=== PATIENT | female | born 1950 | race Caucasian/White ===

== ENCOUNTER 2023-10-17 06:15 | Day surgery (SDC) | payer MEDICARE, SELFPAY ==
[2023-10-12 09:58] VITALS: BMI 30.3
--- NOTE | 2023-10-13 14:17 | HO.ANESPROP2 ---
HPI - Anesthesia Eval Consult details Narrative: 73yo F for Right Cataract Extraction IOL Insertion No previous cataract PMFSH Past Medical History Medical History Loculated pleural effusion Lung nodule Osteopenia Urticaria TIA (transient ischemic attack) Emphysema of lung Cancer of left lung Hx of varicose veins History of adenocarcinoma of lung Obese GERD (gastroesophageal reflux disease) Thyroid disease COPD (chronic obstructive pulmonary disease) HLD (hyperlipidemia) HTN (hypertension) Surgical History Surgical History Hx of dilation and curettage Hx of colonoscopy Hx of tonsillectomy History of lung surgery Social History Social History Patient Tobacco Use Status: Former Tobacco user Use of substances other than those prescribed or required for medical reasons: No Are you DNR?: No Advance Directives: No Advance Directives Information Provided: No Advance Directives on File: No Patient : No : No Meds Allergies Allergy/AdvReac Type Severity Reaction Status Date / Time morphine Allergy Hallucinati Verified 10/17/23 06:56 ons Home Medications ?Medication ?Instructions ?Recorded ?Confirmed ?Last Taken ?Type albuterol sulfate 90 mcg/actuation 2 puff inhalation Q4-6H 10/12/23 10/12/23 10/17/23 History aerosol inhaler aspirin 81 mg tablet,delayed 81 mg PO DAILY 10/12/23 10/12/23 Unknown History release cholecalciferol (vitamin D3) 50 50 mcg PO DAILY 10/12/23 10/12/23 Unknown History mcg (2,000 unit) capsule (Vitamin D3) cimetidine 200 mg tablet 200 mg PO BID 10/12/23 10/12/23 Unknown History coenzyme Q10 300 mg capsule (Co 300 mg PO DAILY 10/12/23 10/12/23 Unknown History Q-10) fluticasone furoate 200 1 ea inhalation DAILY 10/12/23 10/12/23 Unknown History mcg-vilanterol 25 mcg/dose inhalation powder (Breo Ellipta) hydrochlorothiazide 12.5 mg capsule 12.5 mg PO DAILY 10/12/23 10/12/23 Unknown History levothyroxine 75 mcg tablet 75 mcg PO DAILY 10/12/23 10/12/23 10/17/23 History multivitamin 1 tab PO DAILY 10/12/23 10/12/23 Unknown History omalizumab 150 mg/mL subcutaneous 150 mg subcut Q4W 10/12/23 10/12/23 Unknown History syringe (Xolair) rosuvastatin 40 mg tablet 40 mg PO DAILY 10/12/23 10/12/23 Unknown History Exam Height,Weight and Vital Signs: Height 5 ft 1.42 in Weight 73.7 kg Assessment and Plan Assessment Anesthesia Assessment: Chart Reviewed
[2023-10-17] MEDS: Lactated Ringers 500 ML 50 ML IV (06:41)
[2023-10-17] MEDS: Tetracaine HCl/PF 0.5% Oph Sol 4 ML DROPS 1 DROP EYE-RIGHT (06:41)
[2023-10-17] MEDS: Cyclopentolate 1 % Ophth Sol 2 ML DRPBTL 1 DROP EYE-RIGHT ×3 (06:42→06:53)
[2023-10-17] MEDS: Tropicamide 1 % Ophth Sol 3 ML BTL 1 DROP EYE-RIGHT ×3 (06:42→06:53)
[2023-10-17] MEDS: Ketorolac Tromethamine 0.5% Op 10 ML DROPS 1 DROP EYE-RIGHT ×3 (06:42→06:53)
[2023-10-17] MEDS: Phenylephrine HCL 2.5% Oph SoL 2 ML BOTTLE 1 DROP EYE-RIGHT ×3 (06:42→06:54)
[2023-10-17 06:54] VITALS: BP 141/68; PULSE 63; RESP 18; TEMP 36.7; O2SAT 98
[2023-10-17 07:03] VITALS: BMI 29.8
--- NOTE | 2023-10-17 07:32 | P.CONAN_ITS ---
FORMERLY [facility] Past Medical History Medical History Loculated pleural effusion Lung nodule Osteopenia Urticaria TIA (transient ischemic attack) Emphysema of lung Cancer of left lung Hx of varicose veins History of adenocarcinoma of lung Obese GERD (gastroesophageal reflux disease) Thyroid disease COPD (chronic obstructive pulmonary disease) HLD (hyperlipidemia) HTN (hypertension) Functional capacity: independent ambulation Patient : No Family History Family history of problems with anesthesia: No Surgical History Surgical History Hx of dilation and curettage Hx of colonoscopy Hx of tonsillectomy History of lung surgery History of Problems with Anesthesia: No Social History Social History Patient Tobacco Use Status: Former Tobacco user Meds Allergies Allergy/AdvReac Type Severity Reaction Status Date / Time morphine Allergy Hallucinati Verified 10/17/23 06:56 ons Active Medications: Current Medications Albuterol Sulfate (Albuterol Sulfate (0.083%) 2.5 Mg/3 Ml Vial.Neb) 2.5 mg INHALE ONCE PRN PRN Reason: Shortness of Breath/Wheezing Lactated Ringer's (Lr) 500 mls @ 50 mls/hr IV .Q10H CLAY Stop: 10/17/23 16:29 Last Admin: 10/17/23 06:41 Dose: 50 mls/hr Povidone Iodine (Povidone Iodine 5 % Ophth Soln 30 Ml Bottle) 1 appl EYE-RIGHT PREOP PRN PRN Reason: Pre-Op Surgical Implant Prophy Home Medications ?Medication ?Instructions ?Recorded ?Confirmed ?Last Taken ?Type albuterol sulfate 90 mcg/actuation 2 puff inhalation Q4-6H 10/12/23 10/12/2310/31 History aerosol inhaler aspirin 81 mg tablet,delayed 81 mg PO DAILY 10/12/23 10/12/23 Unknown History release cholecalciferol (vitamin D3) 50 50 mcg PO DAILY 10/12/23 10/12/23 Unknown History mcg (2,000 unit) capsule (Vitamin D3) cimetidine 200 mg tablet 200 mg PO BID 10/12/23 10/12/23 Unknown History coenzyme Q10 300 mg capsule (Co 300 mg PO DAILY 10/12/23 10/12/23 Unknown History Q-10) fluticasone furoate 200 1 ea inhalation DAILY 10/12/23 10/12/23 Unknown History mcg-vilanterol 25 mcg/dose inhalation powder (Breo Ellipta) hydrochlorothiazide 12.5 mg capsule 12.5 mg PO DAILY 10/12/23 10/12/23 Unknown History levothyroxine 75 mcg tablet 75 mcg PO DAILY 10/12/23 10/12/23 10/17/23 History multivitamin 1 tab PO DAILY 10/12/23 10/12/23 Unknown History omalizumab 150 mg/mL subcutaneous 150 mg subcut Q4W 10/12/23 10/12/23 Unknown History syringe (Xolair) rosuvastatin 40 mg tablet 40 mg PO DAILY 10/12/23 10/12/23 Unknown History Exam Height,Weight and Vital Signs: Height 5 ft 1.42 in Weight 72.575 kg Last Vital Signs Temp 98.1 F 10/17/23 06:54 Pulse 63 10/17/23 06:54 Resp 18 10/17/23 06:54 BP 141/68 H 10/17/23 06:54 Pulse Ox 98 10/17/23 06:54 O2 Del Method Room Air 10/17/23 06:54 Airway Mallampati Class: III TM Dist: >3cm Neck ROM: Full Heart: RRR Lungs: BS diminished Left Assessment and Plan Assessment Anesthesia Assessment: Anesthesia Plan Discussed and Chart Reviewed Final Anesthetic Review Family History of Problems with Anesthesia: No History of Problems with Anesthesia: No NPO: Yes ASA Class: II Final Preanesthetic Review: Meds/Allgs Chart Reviewed, Consent Obtained/Reviewed and Anes Risks/Benef Reviewed Patient Risk: Low Procedure Risk: Low Anesthetic Plan Anesthetic Plan: MAC: Disposition: Standard PACU
--- NOTE | 2023-10-17 07:58 | P.PCNO_ITS ---
Ophthalmology Procedure Procedure Date of Service: 10/17/23 Ophthalmology Viscoelastic: Healon Duet Dual Pack Pro Ophthalmology Lenses: IOL Acrysof MP - MA60AC (26) Procedure Notes: PREOPERATIVE DIAGNOSIS: Decreased visual acuity right eye secondary to cataract POSTOPERATIVE DIAGNOSIS: Same PROCEDURE: Right cataract extraction with intraocular lens insertion SURGEON: Néstor Parker M.D. ANESTHESIA: Topical/MAC ESTIMATED BLOOD LOSS: None COMPLICATIONS: None After obtaining informed consent, the patient was brought to the operating room suite and placed in the supine position. After adequate sedation per anesthesia, topical drops of Tetracaine were given to the right eye. The eye was then prepped and draped in the usual sterile fashion. The operating room microscope was then positioned over the operative eye and a lid speculum placed. A paracentesis was created. Viscoelastic was then instilled into the anterior chamber. A three plane incision was then created temporally, utilizing a 2.85 mm keratome. Capsulotomy forceps were then utilized to create a circular tear capsulotomy. Hydrodissection and hydrodelineation were carried out until adequate mobilization of the nucleus occurred. Phacoemulsification was then utilized to remove the dense central nucl eus followed by removal of the cortical material utilizing the automated aspiration irrigation unit. Viscoelastic was instilled into the posterior capsular bag followed by placement of a posterior chamber intraocular lens without difficulty. The residual Viscoelastic was then removed utilizing the automated IA machine. The wound was checked and found to be watertight. The patient tolerated the procedure well and the lid speculum was removed. Intracameral injection of Vigamox 0.1 mL followed by a subtenon injection of Kenalog-40 0.2 mL were administered. The patient will be seen in the a.m.
--- NOTE | 2023-10-17 07:58 | MHC.SHP ---
Pre-Procedural Eval Section A - 24 Hr Update-Section A only Date of Service: 10/17/23 The patient is an INPATIENT: No Changes since office visit: No Cold of Flu in the past 2 weeks, No New Medical Problems, No Changes in Medication and No Patient answered all questions The patient has been examined within 24 hours of the surgical procedure. The History & Physical has been completed within 30 days and I have reviewed it.: Yes Section B - Complete if H&P > 30 days Chief Complaint: Age-related nuclear cataract, right eye Allergies: Allergies Allergy/AdvReac Type Severity Reaction Status Date / Time morphine Allergy Hallucinati Verified 10/17/23 06:56 ons Plan Diagnosis/Plan: Unchanged I have reviewed the history and physical and performed a pertinent physical examination on my patient. No changes have occurred unless specified. Time Spent With Patient Time: Total time managing care of this patient today ____ minutes.
[2023-10-17 08:28] VITALS: BP 143/65; PULSE 57; RESP 18; TEMP 36.1; O2SAT 99
== END 2023-10-17 08:39 | disposition home or self-care (01) ==
PROVIDERS: PCP Internal Medicine Sports Medicine; Visit Provider Ophthalmology
PROC: (CPT 66985; principal; 2023-10-17 08:00)
DX: H25.11 Age-related nuclear cataract, right eye (principal); H52.4 Presbyopia; Z83.511 Family history of glaucoma; H35.033 Hypertensive retinopathy, bilateral; H35.09 Other intraretinal microvascular abnormalities; H18.413 Arcus senilis, bilateral; H43.393 Other vitreous opacities, bilateral; J44.9 Chronic obstructive pulmonary disease, unspecified; J43.9 Emphysema, unspecified; I10 Essential (primary) hypertension; L50.1 Idiopathic urticaria; E03.9 Hypothyroidism, unspecified; Z79.51 Long term (current) use of inhaled steroids; Z85.118 Personal history of other malignant neoplasm of bronchus and lung; Z86.73 Personal history of transient ischemic attack (TIA), and cerebral infarction without residual deficits; Z79.82 Long term (current) use of aspirin; Z79.899 Other long term (current) drug therapy; Z98.890 Other specified postprocedural states; Z87.891 Personal history of nicotine dependence
CPT/HCPCS: 66984; J2250; J3301; V2630

== ENCOUNTER 2023-10-31 06:35 | Day surgery (SDC) | payer MEDICARE, SELFPAY ==
[2023-10-12 10:03] VITALS: BMI 30.3
--- NOTE | 2023-10-27 14:26 | HO.ANESPROP2 ---
Documented by User: Katie Simeon NP 10/27/23 14:26 HPI - Anesthesia Eval Consult details Narrative: 73yo F for Left Cataract Extraction IOL Insertion Right eye 10/17/23: Midaz 2 PMFSH Past Medical History Medical History Loculated pleural effusion Lung nodule Osteopenia Urticaria TIA (transient ischemic attack) Emphysema of lung Cancer of left lung Hx of varicose veins History of adenocarcinoma of lung Obese GERD (gastroesophageal reflux disease) Thyroid disease COPD (chronic obstructive pulmonary disease) HLD (hyperlipidemia) HTN (hypertension) Family History Family history of problems with anesthesia: No Surgical History Surgical History Hx of dilation and curettage Hx of colonoscopy Hx of tonsillectomy History of lung surgery History of Problems with Anesthesia: No Social History Social History Patient Tobacco Use Status: Former Tobacco user Use of substances other than those prescribed or required for medical reasons: No Are you DNR?: No Advance Directives: No Advance Directives Information Provided: Yes Advance Directives on File: No Patient : No : No Meds Allergies Allergy/AdvReac Type Severity Reaction Status Date / Time morphine Allergy Hallucinati Verified 10/31/23 07:14 ons Home Medications ?Medication ?Instructions ?Recorded ?Confirmed ?Last Taken ?Type albuterol sulfate 90 mcg/actuation 2 puff inhalation Q4-6H 10/12/23 10/12/23 10/17/23 History aerosol inhaler aspirin 81 mg tablet,delayed 81 mg PO DAILY 10/12/23 10/12/23 Unknown History release cholecalciferol (vitamin D3) 50 50 mcg PO DAILY 10/12/23 10/12/23 Unknown History mcg (2,000 unit) capsule (Vitamin D3) cimetidine 200 mg tablet 200 mg PO BID 10/12/23 10/12/23 Unknown History coenzyme Q10 300 mg capsule (Co 300 mg PO DAILY 10/12/23 10/12/23 Unknown History Q-10) fluticasone furoate 200 1 ea inhalation DAILY 10/12/23 10/12/23 10/31/23 History mcg-vilanterol 25 mcg/dose inhalation powder (Breo Ellipta) hydrochlorothiazide 12.5 mg capsule 12.5 mg PO DAILY 10/12/23 10/12/23 Unknown History levothyroxine 75 mcg tablet 75 mcg PO DAILY 10/12/23 10/12/23 10/31/23 History multivitamin 1 tab PO DAILY 10/12/23 10/12/23 Unknown History omalizumab 150 mg/mL subcutaneous 150 mg subcut Q4W 10/12/23 10/12/23 Unknown History syringe (Xolair) rosuvastatin 40 mg tablet 40 mg PO DAILY 10/12/23 10/12/23 Unknown History Exam Height,Weight and Vital Signs: Height 5 ft 1.42 in Weight 73.7 kg Assessment and Plan Assessment Anesthesia Assessment: Chart Reviewed Final Anesthetic Review Family History of Problems with Anesthesia: No History of Problems with Anesthesia: No Documented by User: Carlita Marks MD 10/31/23 07:59 PMFSH Past Medical History Medical History Loculated pleural effusion Lung nodule Osteopenia Urticaria TIA (transient ischemic attack) Emphysema of lung Cancer of left lung Hx of varicose veins History of adenocarcinoma of lung Obese GERD (gastroesophageal reflux disease) Thyroid disease COPD (chronic obstructive pulmonary disease) HLD (hyperlipidemia) HTN (hypertension) Surgical History Surgical History Hx of dilation and curettage Hx of colonoscopy Hx of tonsillectomy History of lung surgery Social History Social History Patient Tobacco Use Status: Former Tobacco user Use of substances other than those prescribed or required for medical reasons: No Are you DNR?: No Advance Directives: No Advance Directives Information Provided: Yes Advance Directives on File: No Patient : No : No Meds Allergies Allergy/AdvReac Type Severity Reaction Status Date / Time morphine Allergy Hallucinati Verified 10/31/23 07:14 ons Home Medications ?Medication ?Instructions ?Recorded ?Confirmed ?Last Taken ?Type albuterol sulfate 90 mcg/actuation 2 puff inhalation Q4-6H 10/12/23 10/12/23 10/17/23 History aerosol inhaler aspirin 81 mg tablet,delayed 81 mg PO DAILY 10/12/23 10/12/23 Unknown History release cholecalciferol (vitamin D3) 50 50 mcg PO DAILY 10/12/23 10/12/23 Unknown History mcg (2,000 unit) capsule (Vitamin D3) cimetidine 200 mg tablet 200 mg PO BID 10/12/23 10/12/23 Unknown History coenzyme Q10 300 mg capsule (Co 300 mg PO DAILY 10/12/23 10/12/23 Unknown History Q-10) fluticasone furoate 200 1 ea inhalation DAILY 10/12/23 10/12/23 10/31/23 History mcg-vilanterol 25 mcg/dose inhalation powder (Breo Ellipta) hydrochlorothiazide 12.5 mg capsule 12.5 mg PO DAILY 10/12/23 10/12/23 Unknown History levothyroxine 75 mcg tablet 75 mcg PO DAILY 10/12/23 10/12/23 10/31/23 History multivitamin 1 tab PO DAILY 10/12/23 10/12/23 Unknown History omalizumab 150 mg/mL subcutaneous 150 mg subcut Q4W 10/12/23 10/12/23 Unknown History syringe (Xolair) rosuvastatin 40 mg tablet 40 mg PO DAILY 10/12/23 10/12/23 Unknown History Exam Airway Mallampati Class: II TM Dist: >3cm Neck ROM: Full Loose/Missing/Broken Teeth: No Heart: RRR Lungs: CLEAR BUT DISTANT Assessment and Plan Assessment Anesthesia Assessment: Anesthesia Plan Discussed Final Anesthetic Review NPO: Yes ASA Class: III Final Preanesthetic Review: Meds/Allgs Chart Reviewed, Consent Obtained/Reviewed and Anes Risks/Benef Reviewed Patient Risk: Intermediate Procedure Risk: Low Anesthetic Plan Anesthetic Plan: MAC: Disposition: Standard PACU
[2023-10-31] MEDS: Lactated Ringers 500 ML 50 ML IV (06:58)
[2023-10-31] MEDS: Tetracaine HCl/PF 0.5% Oph Sol 4 ML DROPS 1 DROP EYE-LEFT (06:59)
[2023-10-31] MEDS: Phenylephrine HCL 2.5% Oph SoL 2 ML BOTTLE 1 DROP EYE-LEFT ×3 (06:59→07:12)
[2023-10-31] MEDS: Ketorolac Tromethamine 0.5% Op 10 ML DROPS 1 DROP EYE-LEFT ×3 (06:59→07:12)
[2023-10-31] MEDS: Tropicamide 1 % Ophth Sol 3 ML BTL 1 DROP EYE-LEFT ×3 (07:00→07:12)
[2023-10-31] MEDS: Cyclopentolate 1 % Ophth Sol 2 ML DRPBTL 1 DROP EYE-LEFT ×3 (07:06→07:12)
[2023-10-31 07:13] VITALS: BP 125/60; PULSE 68; RESP 18; TEMP 36.7; O2SAT 96
--- NOTE | 2023-10-31 08:21 | MHC.SHP ---
Pre-Procedural Eval Section A - 24 Hr Update-Section A only Date of Service: 10/31/23 The patient is an INPATIENT: No Changes since office visit: No Cold of Flu in the past 2 weeks, No New Medical Problems, No Changes in Medication and No Patient answered all questions The patient has been examined within 24 hours of the surgical procedure. The History & Physical has been completed within 30 days and I have reviewed it.: Yes Section B - Complete if H&P > 30 days Chief Complaint: Age-related nuclear cataract, left eye Allergies: Allergies Allergy/AdvReac Type Severity Reaction Status Date / Time morphine Allergy Hallucinati Verified 10/31/23 07:14 ons Plan Diagnosis/Plan: Unchanged I have reviewed the history and physical and performed a pertinent physical examination on my patient. No changes have occurred unless specified. Time Spent With Patient Time: Total time managing care of this patient today ____ minutes.
--- NOTE | 2023-10-31 08:21 | HO.PNOPHT ---
Ophthalmology Procedure Procedure Date of Service: 10/31/23 Ophthalmology Viscoelastic: Healon Duet Dual Pack Pro Ophthalmology Lenses: IOL Acrysof MP - MA60AC (27) Procedure Notes: PREOPERATIVE DIAGNOSIS: Decreased visual acuity left eye secondary to cataract POSTOPERATIVE DIAGNOSIS: Same PROCEDURE: Left cataract extraction with intraocular lens insertion SURGEON: Néstor Parker M.D. ANESTHESIA: Topical/MAC ESTIMATED BLOOD LOSS: None COMPLICATIONS: None After obtaining informed consent, the patient was brought to the operation room suite and placed in the supine position. After adequate sedation per anesthesia, topical drops of Tetracaine were given to the left eye. The eye was then prepped and draped in the usual sterile fashion. The operating room microscope was then positioned over the operative eye and a lid speculum placed. A paracentesis was created. Viscoelastic was then instilled into the anterior chamber. A three plane incision was then created temporally, utilizing a 2.85 mm keratome. Capsulotomy forceps were then utilized to create a circular tear capsulotomy. Hydrodissection and hydrodelineation were carried out until adequate mobilization of the nucleus occurred. Phacoemulsification was then utilized to remove the dense central nucleus followed by removal of the cortical material utilizing the automated aspiration irrigation unit. Viscoat elastic was instilled into the posterior capsular bag followed by placement of a posterior chamber intraocular lens without difficulty. The residual Viscoat elastic was then removed utilizing the automated IA machine. The wound was check and found to be watertight. The patient tolerated the procedure well and the lid speculum was removed. Intracameral injection of Vigamox 0.1 mL followed by a subtenon injection of Kenalog-40 0.2 mL were administered. The patient will be seen in the a.m.
[2023-10-31 08:49] VITALS: BP 143/74; PULSE 65; RESP 18; TEMP 36.2; O2SAT 98
== END 2023-10-31 08:52 | disposition home or self-care (01) ==
PROVIDERS: PCP Internal Medicine Sports Medicine; Visit Provider Ophthalmology
PROC: (CPT 66985; principal; 2023-10-31 08:30)
DX: H25.12 Age-related nuclear cataract, left eye (principal); H52.4 Presbyopia; H35.033 Hypertensive retinopathy, bilateral; H35.09 Other intraretinal microvascular abnormalities; H43.393 Other vitreous opacities, bilateral; H18.413 Arcus senilis, bilateral; I10 Essential (primary) hypertension; E78.5 Hyperlipidemia, unspecified; J44.9 Chronic obstructive pulmonary disease, unspecified; E03.9 Hypothyroidism, unspecified; L50.1 Idiopathic urticaria; Z85.118 Personal history of other malignant neoplasm of bronchus and lung; Z87.891 Personal history of nicotine dependence; Z83.511 Family history of glaucoma; Z79.51 Long term (current) use of inhaled steroids; Z79.899 Other long term (current) drug therapy
CPT/HCPCS: 66984; J2250; J3301; V2630